=== PATIENT | male | born 1960 | race Caucasian/White ===

== ENCOUNTER 2018-05-26 10:33 | Outpatient (CLI) | END 2018-05-26 10:34 | disposition home or self-care (01) | LOC: RHC-LAB 10:33 → FCC-LAB 10:34 | PROVIDERS: ATTEND Family Medicine | DX: I10 Essential (primary) hypertension (principal); Z86.73 Personal history of transient ischemic attack (TIA), and cerebral infarction without residual deficits; Z87.891 Personal history of nicotine dependence; Z13.220 Encounter for screening for lipoid disorders | CPT/HCPCS: 36415; 80053; 80061; 85025 ==

== ENCOUNTER 2018-07-28 10:00 | Outpatient (RCR) ==
--- NOTE | 2018-07-20 09:48 | RS.OPPTEV2 ---
Date of Note: 07/14/18 Visit #: 1 Number of visits approved by Insurance: pending Date of Evaluation: 07/14/18 Payer Source: Medicaid Treatment Diagnosis: Declined mobility, gait abnormality, History of CVA History of Condition/Mechanism of Injury:: Mr. Hawkins reports having a CVA two years ago. States he has not had therapy. States he has had left shoulder and hip pain since his stroke. Prior Level of Function.....Patient was independent with: ADL's, Self Care, Ambulation/Mobility, Community Integration/Access Current Subjective/complaints:: Mr. Hawkins reports pain in his left shoulder and left hip. States he wants to get better. States he never received any therapy following his stroke two years ago. Reports he has been using a straight cane for his balance since his stroke. He has had a history of falls. States he fell this past winter and broke his right wrist. States he does not drive. He denies any tingling or numbness in the left LE and denies problems with his vision since his stroke. States his left hip pain is at the hip joint and into the left buttock. States it hurts at rest and with weight bearing. States left shoulder hurts at rest or with movement. Treatment Side (optional): Left Medical History Medical History: CVA/TIA (Left arterial ischemic stroke) Surgical History: Tonsillectomy Surgical History Comments:: cardiac electrophysiology procedure (loop insertion) Smoking Status: Former smoker Hx Home Medications: amlodipine, lisinopril/HCTZ,Carvedilol,Trazodone, Atorvastatin, Citalopram, aspirin Patient's Goals: His goal is to get relief of left shoulder and left hip pain. Pain Assessment - Pain Description Pain Location: Left shoulder and hip Current Pain Intensity: not quantified Worst Pain Intensity: not quantified Functional Outcome Measure LE Functional Scale: 24 (24/80=70% impairment) Tinetti: 15 (15=47% impairment) Other: Gait speed of .76 meters/second, indicates that the patient may have difficulty or limited ability to walk in the community and may be at increased risk for falls. .76 m/s for ages 50-59 years, puts him at 40-59% impairment. - G Codes & Severity Modifier G Codes & Modifier: NA Source of G Code score: NA Observation - Observation Inspection: Mr. Hawkins demonstrates a flat affect during evaluation. Posture: Forward Head, Rounded Shoulders Handedness: Right Gait - Gait Pattern Gait Comments: Mr. Hawkins ambulates with a straight cane with a small triangle base, in his left hand. He ambulates independently, demonstrates minimal trunk rotation or reciprocal arm swing. Exhibits short stride length, narrow base of support, and left LE is slightly in ER throughout swing and stance phase. He exhibits decreased hip and knee flexion bilaterally during swing phase, and does not consistently clear his feet. General Range of Motion: Bilateral UE and LE AROM is WFL's. He demonstrates rigidity with PROM throughout all four extremities. Demonstrate tightness in bilateral hips and with lower trunk rotation. No reports of left hip pain with left hip ROM. Demonstrates functional AROM of the left UE. Displays left scapular winging with shoulder AROM. Muscle Strength: Right UE and LE strength 5/5 throughout. Left hip strength 4/ 5 throughout, knee 4 to 4+/5, ankle 4+/5. Left shoulder 4/5 throughout. Serratus Anterior 3+/5. Left elbow and wrist 4/5. Special Tests: Left hip Scour test -Negative, [place] distraction and compression through the left hip joint do not reproduce pain. Palpation Comments:: No palpable subluxation found at left GH joint compared to right. Reports soreness at middle deltoid and triceps, with palpation. Reports no tenderness with palpation over Greater Trochanter of left hip joint. He does not verbalize pain with palpation to the left low back, left SI joint region, or superior gluteal area. Sensation - Sensation Right Lower Extremity: Intact/Normal Left Lower Extremity: Intact/Normal Comments: Reports tingling in the tips of the fingers of the left hand. Balance - Sitting Balance Static Sitting Balance: Good Dynamic Sitting Balance: Good - Standing Balance Static Standing Balance: Good (-) Dynamic Standing Balance: Fair - Comments Balance Assessment Comments: Demonstrates delayed reactions with disturbances to balance, but can maintain position. Coordination - Tests Right Heel to Metcal[place]: Normal/Intact Toe Tapping: Normal/Intact Left Heel to [place]cal[place]: Mild Deviation Toe Tapping: Mild Deviation (with fast speed) Interventions - Exercise/Activities/Manual Therapy Exercises/Activities: None today Manual Therapy: NA - Charges Timed Code Treatment Minutes: 0 mins Total Treatment Time: 55 mins Procedures billed for this date of service:: Eval Medium complex EVALUATION COMPLEXITY LEVEL EVALUATION COMPLEXITY LEVEL: HISTORY: Medium (Hx CVA, HTN,), EXAM OF BODY SYSTEMS: Medium (Gait, ROM, MS, coordination, sensation, balance), CLINICAL PRESENTATION: Medium, CLINICAL DECISION MAKING: Medium Assessment Assessment: Mr. Hawkins presents to therapy with diagnosis of history of stroke , with left sided weakness and decreased mobility. He reports left shoulder and left hip pain since having the stroke. He exhibits dystonia throughout his trunk and LE's, with bilateral hips being very tight. He exhibits several gait deviations, which put him at a high risk for falls per Tinetti Assessment. He demonstrates potential to benefit from skilled therapy to improve joint mobility and strength to improve his overall level of function and safety with ambulation. Patient Education: Education of diagnosis, Body/Joint mechanics, Home Safety, Activity Modification, Education of Plan of Care Rehab Potential: Good Short Term Goals Goal #1: Pt independent and compliant with HEP. Goal to be met by: 08/03/18 Goal #2: Left Serratus Anterior strength 4-/5. Goal to be met by: 08/03/18 Goal #3: Left hip strength 4+/5 throughout. Goal to be met by: 08/10/18 Goal #4: Pt will consistently clear both feet during ambulation in the department. Goal to be met by: 08/03/18 [facility]fp Goals Goal #1: Pt knows HEP and to continue ex's to maintain functional level at D/C. Goal to be met by: 08/29/18 Goal #2: Score on Tinetti Assessment improved to 21/28 showing decreased fall risk. Goal to be met by: 08/29/18 Goal #3: Pt to amb. community distances with good safety and min. gait deviations. Goal to be met by: 08/29/18 Goal #4: Gait speed improved to .85 m/s showing improved community ambulation. Goal to be met by: 08/29/18 Plan - Treatment to be Provided Procedures: Therapeutic Exercises, Therapeutic Activity, Gait Training, Neuromuscular Rehab, Manual Therapy, Patient Education Modalities: Ultrasound/Phonophoresis (left shoulder), Hot Packs - Treatment Plan Frequency: 2-3 X week Duration: 6 weeks Dates of Mcfp Goals: 08/29/18 Expiration date of current Insurance Approval:: pending - Treatment Code (1) Dystonia Code(s): G24.9 - DYSTONIA, UNSPECIFIED Comments: G24.9 muscle rigidity (2) Gait difficulty Code(s): R26.9 - UNSPECIFIED ABNORMALITIES OF GAIT AND MOBILITY Comments: R26.9 (3) At risk for falls Code(s): Z91.81 - HISTORY OF FALLING Comments: Z91.81 (4) History of stroke Code(s): Z86.73 - PRSNL HX OF TIA (TIA), AND CEREB INFRC W/O RESID DEFICITS Comments: Z86.73
--- NOTE | 2018-07-26 11:01 | RS.OPPTDN ---
Subjective Date of Note: 07/26/18 Visit #: 2 Number of visits approved by Insurance: pending Date of Evaluation: 07/14/18 Payer Source: Medicaid Treatment Diagnosis: Declined mobility, gait abnormality, History of CVA Current Subjective/complaints:: Reports the L arm pain is moderate today ,but has not used it much.The L hip pain is constant ,when sitting or standing . Pain Assessment - Pain Description Pain Location: L shoulder and L hip Pain Description: Dull, Aching, Chronic Current Pain Intensity: 5/10 in L hip and L shoulder - Heat/Cryotherapy Treatment: Hot Pack (20 mins. prior to US and exercises) Interventions - Exercise/Activities/Manual Therapy Exercises/Activities: 25 mins. total of supine exercises for L UE and L LE , including shoulder ex using wand for chest press and overhead flexion.L LE SAQ, heelslides ,hip abd/adduction.3/15 all exercises.Gait with 3 prong cane and SBA of 1. Total minutes of Exercise: 25 Manual Therapy: na Total minutes of Manual Therapy: 0 - Charges Timed Code Treatment Minutes: 25 Total Treatment Time: 55 Procedures billed for this date of service:: hp,US,ex 2 Assessment: Patient oletes exercises well,with frequent rest periods, increased difficulty with eccentric motions.He is very attentive and motivated to improve.He does require cues to control speed of gait ,tends to walk too quickly as the distance increases.He is able to correct this when cues are given. Patient Education: Education of diagnosis, Body/Joint mechanics, Home Exercise Program, Home Safety, Activity Modification, Education of Plan of Care Short Term Goals Goal #1: Pt independent and compliant with HEP. Goal to be met by: 08/03/18 Goal #2: Left Serratus Anterior strength 4-/5. Goal to be met by: 08/03/18 Goal #3: Left hip strength 4+/5 throughout. Goal to be met by: 08/10/18 Goal #4: Pt will consistently clear both feet during ambulation in the department. Goal to be met by: 08/03/18 Progress towards Goal:: Progressing Book Author Goals Goal #1: Pt knows HEP and to continue ex's to maintain functional level at D/C. Goal to be met by: 08/29/18 Goal #2: Score on Tinetti Assessment improved to 21/28 showing decreased fall risk. Goal to be met by: 08/29/18 Goal #3: Pt to amb. community distances with good safety and min. gait deviations. Goal to be met by: 08/29/18 Goal #4: Gait speed improved to .85 m/s showing improved community ambulation. Goal to be met by: 08/29/18 Plan Dates of Detention Goals: 08/29/18 Expiration date of current Insurance Approval:: pending PLAN: Cont. skilled PT to improve strength and mobility.
--- NOTE | 2018-07-28 11:03 | RS.OPPTDN ---
Subjective Date of Note: 07/28/18 Visit #: 3 Number of visits approved by Insurance: pending Date of Evaluation: 07/14/18 Payer Source: Medicaid Treatment Diagnosis: Declined mobility, gait abnormality, History of CVA Current Subjective/complaints:: Patient reports increased muscle soreness after last session ,but he is better today. Pain Assessment - Pain Description Pain Location: L hip /L shoulder Pain Description: Dull, Aching, Chronic Pain Description: moderate Current Pain Intensity: not rated - Treatment Modality: Ultrasound Parameters/Method Applied: 10 mins. @ 1.5 w/cm2 to L shoulder,continuous mode. Patient Position: Sitting Interventions - Exercise/Activities/Manual Therapy Exercises/Activities: 35 mins. total ,seted exercises tday for L UE using yellow theraband for biceps curls,IR/ER ,rowing motion.LE exercise of bilateral leg press 1/15 @ 60,75,90 #,isomtric hip abd/adduction. Total minutes of Exercise: 35 Manual Therapy: na Total minutes of Manual Therapy: 0 HOME EXERCISE PROGRAM: Yellow theraband given for UE AROM in all directions.LE exercises of ankle pumps,heelslides,hip abd/adduction,LAQ's.Recommend 10-15 reps each exercise,2x/day as tolerated. - Charges Timed Code Treatment Minutes: 35 Total Treatment Time: 45 Procedures billed for this date of service:: US,ex 2 Assessment: Patient fatigues easily with eccentric motion in the L UE.He has better control of the L LE on leg press .He ambulates with 3 point cane ,has steady gait for functional distances. Patient Education: Education of diagnosis, Body/Joint mechanics, Home Exercise Program, Home Safety, Activity Modification, Education of Plan of Care Patient demonstrates compliance with HEP?: Yes Short Term Goals Goal #1: Pt independent and compliant with HEP. Goal to be met by: 08/03/18 Progress towards Goal:: Progressing Goal #2: Left Serratus Anterior strength 4-/5. Goal to be met by: 08/03/18 Progress towards Goal:: Progressing Goal #3: Left hip strength 4+/5 throughout. Goal to be met by: 08/10/18 Goal #4: Pt will consistently clear both feet during ambulation in the department. Goal to be met by: 08/03/18 Progress towards Goal:: Progressing Drag Seiner Goals Goal #1: Pt knows HEP and to continue ex's to maintain functional level at D/C. Goal to be met by: 08/29/18 Goal #2: Score on Tinetti Assessment improved to 21/28 showing decreased fall risk. Goal to be met by: 08/29/18 Goal #3: Pt to amb. community distances with good safety and min. gait deviations. Goal to be met by: 08/29/18 Goal #4: Gait speed improved to .85 m/s showing improved community ambulation. Goal to be met by: 08/29/18 Plan Dates of Drag Seiner Goals: 08/29/18 Expiration date of current Insurance Approval:: pending PLAN: Cont. skilled PT to strengthen the L UE/L LE for safer mobility on all surfaces.
== END 2018-07-29 23:59 ==
PROVIDERS: ATTEND Family Medicine
DX: R26.9 Unspecified abnormalities of gait and mobility (principal); G24.9 Dystonia, unspecified; Z91.81 History of falling; Z86.73 Personal history of transient ischemic attack (TIA), and cerebral infarction without residual deficits

== ENCOUNTER 2018-11-07 11:59 | Outpatient (CLI) | END 2018-11-07 12:00 | disposition home or self-care (01) | LOC: RHC-LAB 11:59 → FCC-LAB 12:00 | PROVIDERS: ATTEND Family Medicine | DX: G62.89 Other specified polyneuropathies (principal) | CPT/HCPCS: 36415; 82607 ==